=== PATIENT | female | born 1990 | race Caucasian/White ===

== ENCOUNTER 2017-11-03 12:57 | Emergency (ER) | payer OTHER, MEDICAID, SELFPAY ==
--- NOTE | 2017-11-03 13:09 | ED_ITS ---
HPI - Female Genitourinary <DELIA Mathis - Last Filed: 11/03/17 22:00> General Chief complaint: Urogenital-Female Stated complaint: STATES BLADDER INFECTION Time Seen by Provider: 11/03/17 13:08 History of Present Illness HPI Narrative: Healthy 26-year-old female here for complaint of having dysuria and increased urinary frequency since yesterday. She states that she feels like she has urinary tract infection. She denies any fevers or chills. No abdominal pain. No flank pain. Positive p.o. intake. She denies any other concerns or complaints. MD Complaint: dysuria and UTI Related Data Home Medications Medication Instructions Recorded Confirmed norgestimate-ethinyl estradiol 1 tab PO DAILY 11/03/17 11/03/17 [Tri-Linyah] Allergies Allergy/AdvReac Type Severity Reaction Status Date / Time No Known Drug Allergies Allergy Verified 11/03/17 13:27 Review of Systems <DELIA Mathis - Last Filed: 11/03/17 22:00> Constitutional Denies chills, Denies fever(s), Denies lethargy and Denies weakness Eyes Denies change in vision, Denies eye discharge, Denies irritation and Denies loss of vision Cardiovascular Denies chest pain, Denies irregular heart rhythm, Denies lightheadedness, Denies palpitations and Denies orthopnea Gastrointestinal Gastrointestinal: Denies abdominal pain, Denies change in bowel habits, Denies diarrhea, Denies nausea and Denies vomiting Genitourinary Reports dysuria Musculoskeletal Denies back pain, Denies muscle weakness, Denies numbness and Denies tingling Integumentary/Breasts Denies pruritus, Denies erythema, Denies rash and Denies wounds Neurologic Denies confusion, Denies loss of vision, Denies numbness, Denies tingling and Denies weakness Psychiatric Denies anxiety, Denies confusion, Denies depression, Denies homicidal ideation and Denies suicidal ideation Endocrine Denies palpitations Exam <DELIA Mathis - Last Filed: 11/03/17 22:00> Initial Vital Signs Initial Vital Signs: Vital Signs Temperature 97.3 F L 11/03/17 13:24 Pulse Rate 76 11/03/17 13:24 Respiratory Rate 14 11/03/17 13:24 Blood Pressure 120/64 11/03/17 13:24 Const General: cooperative and well developed Nutritional Appearance: well nourished Orientation: alert, awake, oriented x3 and not confused [facility] Mouth: oral mucosae normal and moist mucous membranes Eyes Conjunctivae: conjunctivae normal Sclera: sclerae normal Pupils: PERRL EOM: EOM intact bilaterally Resp Effort & Inspection: normal respiratory effort, able to speak in complete sentences, no respiratory distress and no use of accessory muscles Auscultation: clear to auscultation bilaterally, no rales, no rhonchi and no wheezes Cardio Rate: regular rate Rhythm: regular rhythm Heart Sounds: no click, no gallops, no murmurs and no rubs GI Inspection: non-distended Palpation: soft, no hepatosplenomegaly, No guarding, No pulsatile mass and No tender Auscultation: normal bowel sounds General: No CVA tenderness Skin General: no rashes or lesions noted, No jaundice and No petechiae <DO Ila Sotelo Last Filed: 11/11/17 17:59> Initial Vital Signs Initial Vital Signs: Vital Signs Temperature 97.3 F L 11/03/17 13:24 Pulse Rate 76 11/03/17 13:24 Respiratory Rate 14 11/03/17 13:24 Blood Pressure 120/64 11/03/17 13:24 Course <DELIA Mathis - Last Filed: 11/03/17 22:00> Orders Ordered: ED Orders 11/03/17 13:42 Urine Microscopic Stat Vital Signs - 8 hr 11/03/17 13:24 Temperature 97.3 F L Pulse Rate 76 Respiratory Rate 14 Blood Pressure 120/64 <DO Ila Sotelo Last Filed: 11/11/17 17:59> Orders Ordered: ED Orders 11/03/17 13:42 Urine Microscopic Stat Vital Signs - 8 hr 11/03/17 13:24 Temperature 97.3 F L Pulse Rate 76 Respiratory Rate 14 Blood Pressure 120/64 MDM - Female Genitourinary <DELIA Mathis - Last Filed: 11/03/17 22:00> Lab Data Lab Results 11/03/17 Range/Units 13:42 Urine RBC 5-10/hpf H (0-5/HPF) Urine WBC 5-10/hpf H (0-5/HPF) Ur Squamous Epith Cells 5-10 /hpf H Urine Bacteria None seen (None) Ur Culture Indicated? Cult not indicated Micro UA Comment Not Reportable MDM Narrative Medical decision making narrative: Urinalysis was obtained and indicates urinary tract infection. She is placed on a Macrobid and Pyridium. Culture is pending. Plenty of fluids. Follow up with primary care provider. Return emergency room for any worsening symptoms. <Alden Salomon DO - Last Filed: 11/11/17 17:59> Lab Data Lab Results 11/03/17 Range/Units 13:42 Urine RBC 5-10/hpf H (0-5/HPF) Urine WBC 5-10/hpf H (0-5/HPF) Ur Squamous Epith Cells 5-10 /hpf H Urine Bacteria None seen (None) Ur Culture Indicated? Cult not indicated Micro UA Comment Not Reportable Discharge Plan Departure Patient Disposition: Home, Self-Care Clinical Impression: Urinary tract infection Discharge Date/Time: 11/03/17 15:29 Interventions: ED Discharge Assessment Last Done: 11/03/17 15:29 Instructions: DI for Urinary Tract Infection (UTI) Prescriptions: No Action norgestimate-ethinyl estradiol [Tri-Linyah] 0.18/0.215/0.25 mg-35 mcg (28) tablet 1 tab PO DAILY RF: 0 Referrals: [facility] [Provider Group] <Alden Salomon DO - Last Filed: 11/11/17 17:59> Cosign ED Attending Jennifer Attestation: I was immediately available in the department for consultation. Documentation has been reviewed. I agree with assessment and plan.
[2017-11-03 13:24] VITALS: BP 120/64; PULSE 76; RESP 14; TEMP 36.3; BMI 32.5
[2017-11-03 14:37] LABS: Bacteria Urine None Seen
[2017-11-03 14:43] LABS: RBC Urine 5-10/HPF (0-5/HPF)
[2017-11-03 14:44] LABS: Culture Indicated Urine Cult Not Indicated; Squamous Epithelial Cell Urine 5-10 /HPF; WBC Urine 5-10/HPF (0-5/HPF)
--- NOTE | 2017-11-03 15:25 | PC.NURSE ---
2 days of urgency/dysuria, hx of same r/t UTI per pt, denies nausea/vomiting/diarrhea/fever/chills/abd pain or other sx
== END 2017-11-03 15:29 | disposition home or self-care (01) ==
PROVIDERS: Emergency Provider Nurse Practitioner Family
DX: N39.0 Urinary tract infection, site not specified (principal)
CPT/HCPCS: 81003; 81015; 81025; 99282

== ENCOUNTER 2018-10-09 19:43 | Emergency (ER) | payer OTHER, MEDICAID, SELFPAY ==
[2018-10-09 20:02] VITALS: BP 140/89; PULSE 93; RESP 18; TEMP 36.8; O2SAT 99; BMI 31.8
--- NOTE | 2018-10-09 20:25 | ED.FEMALEGU ---
HPI - Female Genitourinary <CHANDLER Almeida - Last Filed: 10/09/18 21:38> General Chief complaint: Urogenital-Female Stated complaint: BLADDER INFECTION Time Seen by Provider: 10/09/18 20:08 Source: patient Mode of arrival: ambulatory Limitations: no limitations History of Present Illness HPI Narrative: The patient is a 27-year-old female with history of UTIs the who is a nonsmoker who presents with chief complaint of ?I have a UTI?. She states she has dysuria urgency or frequency. She denies hematuria. She denies any fever flank pain nausea vomiting or diarrhea. She states she has a history of UTIs and this is consistent with previous UTIs. She denies any vaginal discharge or concern for sexually transmitted infections. Related Data Home Medications Medication Instructions Recorded Confirmed norgestimate-ethinyl estradiol 1 tab PO DAILY 11/03/17 11/03/17 [Tri-Linyah] Previous Rx's Medication Instructions Recorded nitrofurantoin monohyd/m-cryst 100 mg PO BID #14 cap 10/09/18 [Macrobid] Allergies Allergy/AdvReac Type Severity Reaction Status Date / Time No Known Drug Allergies Allergy Verified 11/03/17 13:27 Review of Systems <CHANDLER Almeida - Last Filed: 10/09/18 21:38> Review of Systems GENERAL: Denies chills, fatigue, malaise, fever, sweats. HEENT: Denies sinus pain, ear pain, sore throat, difficulty swallowing, dizziness. RESPIRATORY: Denies dyspnea, cough, wheezing, hemoptysis, sputum. CARDIOVASCULAR: Denies chest pain, palpitations, orthopnea, edema, GASTROINTESTINAL: Denies nausea, vomiting, abdominal pain, diarrhea, constipation, melena. : See HPI MUSCULOSKELETAL: denies weakness, joint pain, or bony pain SKIN: Denies rash, skin lesions, or other NEUROLOGIC: Denies weakness, headache, numbness, change in speech, confusion, seizures, incoordination. PSYCHIATRIC: No concerning psychosocial issues. 12 point review of systems is negative except for those stated above PFSH <CHANDLER Almeida - Last Filed: 10/09/18 21:38> Medical History (Updated 10/09/18 @ 21:37 by CHANDLER Almeida) History of recurrent UTIs (Acute) Surgical History History of cholecystectomy (Acute) Social History Smoking Status: Never smoker Social History Smoking Status: Never smoker Exam <CHANDLER Almeida - Last Filed: 10/09/18 21:38> Narrative Exam Narrative: GENERAL: This is a well-nourished, well-developed patient, in no acute distress HEAD: Atraumatic. Normocephalic. No temporal or scalp tenderness. EYES: Pupils equal round and reactive. Extraocular motions intact. No scleral icterus. No injection or drainage. NECK: Trachea midline. No JVD or lymphadenopathy. Supple, nontender, no meningeal signs. CARDIOVASCULAR: Regular rate and rhythm RESPIRATORY: Clear to auscultation. Breath sounds equal bilaterally. No wheezes, rales, or rhonchi. No increased respiratory effort. GASTROINTESTINAL: Abdomen soft, non-tender, nondistended. No hepato-splenomegaly, or palpable masses. No guarding. EXTREMITIES: No clubbing, cyanosis, or edema. No joint tenderness, effusion, or edema noted. BACK: Nontender without deformity or crepitance. No flank tenderness. No CVA tenderness bilaterally. NEURO: AOx3. SKIN: No rash or erythema. Initial Vital Signs Initial Vital Signs: Vital Signs Temperature 98.3 F 10/09/18 20:02 Pulse Rate 93 H 10/09/18 20:02 Respiratory Rate 18 10/09/18 20:02 Blood Pressure 140/89 10/09/18 20:02 Pulse Oximetry 99 10/09/18 20:02 <Mayur Martin DO - Last Filed: 10/09/18 23:03> Initial Vital Signs Initial Vital Signs: Vital Signs Temperature 98.3 F 10/09/18 20:02 Pulse Rate 93 H 10/09/18 20:02 Respiratory Rate 18 10/09/18 20:02 Blood Pressure 140/89 10/09/18 20:02 Pulse Oximetry 99 10/09/18 20:02 Course <CHANDLER Almeida - Last Filed: 10/09/18 21:38> Orders Ordered: ED Orders 10/09/18 20:05 Test Urine Stat Urine Culture Stat Urine Microscopic Stat Discontinued Medications Nitrofurantoin Macrocrystals (Macrobid 100 Mg Capsule) 100 mg PO NOW ONE Stop: 10/09/18 20:46 Last Admin: 10/09/18 21:04 Dose: 100 mg Vital Signs - 8 hr 10/09/18 20:02 10/09/18 21:44 Temperature 98.3 F 98.4 F Pulse Rate 93 H 72 Respiratory Rate 18 Blood Pressure 140/89 127/81 Pulse Oximetry 99 98 <Mayur Martin DO - Last Filed: 10/09/18 23:03> Orders Ordered: ED Orders 10/09/18 20:05 Test Urine Stat Urine Culture Stat Urine Microscopic Stat Discontinued Medications Nitrofurantoin Macrocrystals (Macrobid 100 Mg Capsule) 100 mg PO NOW ONE Stop: 10/09/18 20:46 Last Admin: 10/09/18 21:04 Dose: 100 mg Vital Signs - 8 hr 10/09/18 20:02 10/09/18 21:44 Temperature 98.3 F 98.4 F Pulse Rate 93 H 72 Respiratory Rate 18 Blood Pressure 140/89 127/81 Pulse Oximetry 99 98 MDM - Female Genitourinary <LINDA Almeida- - Last Filed: 10/09/18 21:38> Lab Data Lab Results 10/09/18 10/09/18 Range/Units 20:05 20:05 Urine RBC 1-5/hpf (0-5/HPF) Urine WBC 10-30/hpf H (0-5/HPF) Ur Squamous Epith Cells 1-5 /hpf (0-5/HPF) Urine Bacteria Few (2-10) H (None) Ur Culture Indicated? Specimen cultured Urine Test Negative (Negative) Urine Dip Bedside Urine Glucose Negative Bedside Urine Bilirubin - Negative Bedside Urine Ketone - Negative Urine Specific [place] 1.015 Bedside Urine Occult Blood + Bedside Urine pH 6.0 Bedside Urine Protein - Negative Bedside Urine Urobilinogen - Negative Bedside Urine Nitrite - Negative Bedside Urine Leukocytes +++ 500 Esterase MDM Narrative Medical decision making narrative: The patient is a 27 year female who presents with UTI symptoms. Urinalysis is consistent with a UTI. She does not have any systemic symptoms such as CVA tenderness fevers cetera. She appears well and nontoxic. Thus I am starting her on Macrobid. She had a negative test. Discussed return precautions such as flank pain, inability keep down fluids etc. Encouraged PCP follow-up. Urine culture is pending at this time. No questions or concerns upon discharge. <Mayur Martin DO - Last Filed: 10/09/18 23:03> Lab Data Lab Results 10/09/18 10/09/18 Range/Units 20:05 20:05 Urine RBC 1-5/hpf (0-5/HPF) Urine WBC 10-30/hpf H (0-5/HPF) Ur Squamous Epith Cells 1-5 /hpf (0-5/HPF) Urine Bacteria Few (2-10) H (None) Ur Culture Indicated? Specimen cultured Urine Test Negative (Negative) Urine Dip Bedside Urine Glucose Negative Bedside Urine Bilirubin - Negative Bedside Urine Ketone - Negative Urine Specific [place] 1.015 Bedside Urine Occult Blood + Bedside Urine pH 6.0 Bedside Urine Protein - Negative Bedside Urine Urobilinogen - Negative Bedside Urine Nitrite - Negative Bedside Urine Leukocytes +++ 500 Esterase Discharge Plan Departure Patient Disposition: Home Clinical Impression: Urinary tract infection Qualifiers: Urinary tract infection type: site unspecified Hematuria presence: without hematuria Qualified Code(s): N39.0 - Urinary tract infection, site not specified Discharge Date/Time: 10/09/18 21:44 Interventions: ED Discharge Assessment Last Done: 10/09/18 21:44 Instructions: DI for Urinary Tract Infection (UTI) Activity Restrictions/Additional Instructions: Thank you for trusting us with your care today. I am starting you on an antibiotic for a urinary tract infection. Please monitor for fever, flank pain and inability keep down fluids and be evaluated if any of these occur. We are sending off a urine culture to make sure that the antibiotic will take care of the specific infection that you have. Come back to the emergency department for any acute concerns. Prescriptions: New nitrofurantoin monohyd/m-cryst [Macrobid] 100 mg capsule 100 mg PO BID Qty: 14 RF: 0 No Action norgestimate-ethinyl estradiol [Tri-Linyah] 0.18/0.215/0.25 mg-35 mcg (28) tablet 1 tab PO DAILY RF: 0 <Mayur Martin DO - Last Filed: 10/09/18 23:03> Cosign ED Attending Jennifer Attestation: I was available for consultation during this patient's emergency department encounter
[2018-10-09 20:29] LABS: RBC Urine 1-5/HPF (0-5/HPF); Squamous Epithelial Cell Urine 1-5 /HPF (0-5/HPF); WBC Urine 10-30/HPF (0-5/HPF)
[2018-10-09 20:30] LABS: Bacteria Urine Few (2-10); Culture Indicated Urine Specimen Cultured
[2018-10-09] MEDS: NITROFURANTOIN ER 100 MG CAPSULE PO (21:04)
[2018-10-09 21:27] LABS: Pregnancy Test Urine Negative (Negative)
[2018-10-09 21:44] VITALS: BP 127/81; PULSE 72; TEMP 36.9; O2SAT 98
== END 2018-10-09 21:44 | disposition home or self-care (01) ==
PROVIDERS: Emergency Provider Nurse Practitioner Family
DX: N39.0 Urinary tract infection, site not specified (principal)
CPT/HCPCS: 81003; 81015; 81025; 87077; 87086; 87186; 99282; 99283

== ENCOUNTER 2023-11-26 14:44 | Emergency (ER) | payer OTHER, MEDICAID, SELFPAY ==
[2023-11-26 14:51] VITALS: BP 121/74; PULSE 78; RESP 16; TEMP 37.1; O2SAT 99; BMI 34.3
--- NOTE | 2023-11-26 15:12 | ED.EXTPRO ---
HPI - Extremity Problem General Chief complaint: Extremity Problem,Nontraumatic Stated complaint: toe swelling R foot Time Seen by Provider: 11/26/23 15:01 Source: patient Mode of arrival: Family Vehicle History of Present Illness HPI Narrative: Patient is a 32-year-old female who approximately 8 days ago a sustained a insect sting to the bottom of the right 2nd toe. She states that those symptoms resolved but now over the past day she noticed increase redness and swelling to the toe. Is also itching. No other reported symptoms. Has not tried anything for the symptoms prior to arrival Related Data Home Medications Medication Instructions Recorded Confirmed norgestimate-ethinyl estradiol 1 tab PO DAILY 11/03/17 11/03/17 0.18 mg/0.215mg/0.25mg-35 mcg(28)tablet Previous Rx's Medication Instructions Recorded nitrofurantoin 100 mg PO BID #14 caps 10/09/18 monohydrate/macrocrystals 100 mg capsule (Macrobid) cephalexin 500 mg capsule 500 mg PO QID 5 days #20 caps 11/26/23 Allergies Allergy/AdvReac Type Severity Reaction Status Date / Time No Known Drug Allergies Allergy Verified 11/03/17 13:27 Review of Systems Musculoskeletal Musculoskeletal: Reports system reviewed and no additional complaints, except as documented Integumentary/Breasts Skin/Breast: Reports system reviewed and no additional complaints, except as documented Patient History Medical History History of recurrent UTIs Surgical History History of cholecystectomy Social History Smoking Status: Never smoker Smoking Status: Never smoker alcohol intake frequency: 0-2 drinks per day Substance Use Type: does not use Exam Initial Vital Signs Initial Vital Signs: Vital Signs Temperature 98.7 F 11/26/23 14:51 Pulse Rate 78 11/26/23 14:51 Respiratory Rate 16 11/26/23 14:51 Blood Pressure 121/74 11/26/23 14:51 Pulse Oximetry 99 11/26/23 14:51 Oxygen Delivery Method Room Air 11/26/23 14:51 Skin Other: Patient was swelling to the right 2nd toe with redness circumferentially and extending just proximal to the MTP joint of the toe on the dorsum of the foot. Extrem Other: Swelling to the right 2nd toe. Course Vital Signs Vital signs: Vital Signs - 8 hr // 14:51 Temperature 98.7 F Pulse Rate 78 Respiratory Rate 16 Blood Pressure 121/74 Pulse Oximetry 99 Oxygen Delivery Method Room Air MDM - Extremity (Nontraumatic) MDM Narrative Medical decision making narrative: History and physical exam was consistent with a cellulitis most likely starting from the insect sting that she sustained about 1 week ago. Otherwise she has no other findings on the exam nor complaints. Will start her on antibiotics. She was given return precautions. She expressed understanding and agreement. Discharge Plan Departure Patient Disposition: Home Clinical Impression: Cellulitis Instructions: DI for Cellulitis -- Adult Activity Restrictions/Additional Instructions: Take the antibiotics as directed. You can continue to take Tylenol and or ibuprofen for discomfort. Return to the emergency department for new symptoms. Prescriptions: New cephalexin 500 mg capsule 500 mg PO QID 5 Days Qty: 20 0RF No Action norgestimate-ethinyl estradiol [Tri-Linyah] 0.18/0.215/0.25 mg-35 mcg (28) tablet 1 tab PO DAILY nitrofurantoin monohyd/m-cryst [Macrobid] 100 mg capsule 100 mg PO BID Qty: 14 0RF Rx Instructions: must administer with a meal/food Stand Alone Forms: Patient Portal/API
== END 2023-11-26 15:37 | disposition home or self-care (01) ==
PROVIDERS: Emergency Provider Emergency Medicine
DX: L03.031 Cellulitis of right toe (principal)
CPT/HCPCS: 99281; 99283